=== PATIENT | female | born 1955 | race Two or more races ===

== ENCOUNTER 2025-01-02 09:02 | Outpatient (CLI) | payer OTHER | END 2025-01-02 09:08 | disposition home or self-care (01) | LOC: TOM 09:02 | PROVIDERS: ATTEND Surgery | DX: K57.32 Diverticulitis of large intestine without perforation or abscess without bleeding (principal); R10.9 Unspecified abdominal pain; R19.4 Change in bowel habit; Z12.11 Encounter for screening for malignant neoplasm of colon ==